=== PATIENT | male | born 1960 | race Caucasian/White ===

== ENCOUNTER 2021-04-19 19:29 | Emergency (ER) | payer OTHER ==
[~2021-04-19] VITALS: Ht 167.6 cm; Wt 68.0 kg
[~2021-04-19 19:29] MED LIST: CIPROFLOXACIN500 M1 PO; IBUPROFEN 600600 M1 PO; NORCO 5-325 TA1 EACH PO
[2021-04-19] MEDS ORDERED: BACTRIM DS TAB1 EACH PO (22:02)
[2021-04-19] MEDS ORDERED: HYDROCHLOROTH12.5 M1 PO (22:02)
== END 2021-04-19 22:30 | disposition left against medical advice (07) ==
LOC: ER 19:29
DX: L02.413 Cutaneous abscess of right upper limb (principal)